=== PATIENT | female | born 1950 | race Caucasian/White ===

== ENCOUNTER → 2023-10-15 | Outpatient (REF) | payer MEDICARE ==
[~2023-10-15] MED LIST: AZITHROMYCIN250 MG PO; BENZONATATE200 MG PO; VENTOLIN HFA18 GM INH
== END ==
LOC: CT 11:29
PROVIDERS: ATTEND Nurse Practitioner Family
DX: J44.9 Chronic obstructive pulmonary disease, unspecified (principal); Z87.891 Personal history of nicotine dependence
CPT/HCPCS: 71250

== ENCOUNTER 2023-11-05 20:07 | Emergency (ER) | payer MEDICARE ==
[~2023-11-05] VITALS: Ht 152.4 cm; Wt 69.4 kg
[2023-11-05 20:15] VITALS: PULSE 62; RESP 18; TEMP 98.4
[2023-11-05] MEDS: TRAMADOL HCL 50 MG TAB PO STA (20:20)
[2023-11-05] MEDS ORDERED: ULTRAM 50MG50 MG PO (21:05)
[2023-11-05 21:28] VITALS: BP 144/82; PULSE 78; RESP 18; TEMP 98.5; O2SAT 98
== END 2023-11-05 21:30 | disposition home or self-care (01) ==
LOC: ER 20:11
DX: S52.112A Torus fracture of upper end of left radius, initial encounter for closed fracture (principal); S63.8X2A Sprain of other part of left wrist and hand, initial encounter; W01.0XXA Fall on same level from slipping, tripping and stumbling without subsequent striking against object, initial encounter; Y93.01 Activity, walking, marching and hiking; Y92.89 Other specified places as the place of occurrence of the external cause; J44.9 Chronic obstructive pulmonary disease, unspecified; E03.9 Hypothyroidism, unspecified; K21.9 Gastro-esophageal reflux disease without esophagitis; J45.909 Unspecified asthma, uncomplicated
CPT/HCPCS: 99284

== ENCOUNTER → 2023-11-16 | Outpatient (REF) | payer MEDICARE ==
[~2023-11-16] MED LIST changes: +ULTRAM 50MG50 MG PO
== END ==
LOC: EDSTATUS 13:00 → RESP 13:08
PROVIDERS: ATTEND Nurse Practitioner Family
DX: R06.02 Shortness of breath (principal); J45.909 Unspecified asthma, uncomplicated; J44.9 Chronic obstructive pulmonary disease, unspecified; R05.3 Chronic cough; Z87.891 Personal history of nicotine dependence
CPT/HCPCS: 94060; 94727; 94729

== ENCOUNTER → 2024-10-26 | Outpatient (REF) | payer MEDICARE | LOC: RESP 10:38 | PROVIDERS: ATTEND Nurse Practitioner Family | DX: R06.02 Shortness of breath (principal); J44.9 Chronic obstructive pulmonary disease, unspecified; R05.3 Chronic cough; J45.909 Unspecified asthma, uncomplicated | CPT/HCPCS: 94060; 94727; 94729 ==

== ENCOUNTER → 2024-10-31 | Outpatient (REF) | payer MEDICARE | LOC: CT 16:23 | PROVIDERS: ATTEND Nurse Practitioner Family | DX: Z87.891 Personal history of nicotine dependence (principal) | CPT/HCPCS: 71250 ==